=== PATIENT | male | born 1950 | race Caucasian/White ===

== ENCOUNTER → 2016-03-19 | Outpatient (CLI) | payer BC, OTHER ==
--- NOTE | 2016-03-19 13:22 | MRI ---
EXAM DESCRIPTION: MR LUMBAR SPINE WITHOUT IV CONTRAST CLINICAL HISTORY: RADICULOPATHY COMPARISON: None. TECHNIQUE: Multiplanar MRI of the lumbar spine was performed without contrast. GENERAL Lumbar vertebral bodies show normal height without compression deformity. Horizontal positioning of the upper sacrum is seen without evidence for spondylolysis or spondylolisthesis. There is curvature of the upper lumbar spine with convexity towards the right. Desiccation of the disc space and mild diffuse disc space narrowing is seen from T11 through L5. Small Schmorl's nodes extend into the endplates around the disc spaces at these levels without bone marrow edema. There is heterogeneous increased signal on T2 weighted sequences involving the right L5 pedicle. Conus medullaris terminates at T12 and is unremarkable. There is a 3.2 cm fluid signal cortical cyst of the right kidney with subcentimeter cortical cysts on both kidneys. L1-2 No significant spinal canal stenosis or foraminal encroachment is seen. L2-3 There is 2 mm broad-based disc bulge flattening the ventral surface of the thecal sac contributing to minimal spinal canal stenosis and mild left greater than right foraminal encroachment. L3-4 Minimal disc space narrowing is seen. There is mild 2-3 mm broad-based disc bulge eccentric towards the left flattening the ventral surface of the thecal sac contributing to minimal spinal canal stenosis with mild left greater than right foraminal encroachment. L4-5 No significant disc space narrowing. Mild bilateral facet hypertrophic and degenerative changes with a right greater than left ligamentum flavum thickening indents the posterolateral aspect of the thecal sac contributing to mild spinal canal stenosis. There is 2 or 3 mm broad-based disc bulge more prominent in the neural foramen bilaterally. Mild left and moderate to severe right foraminal encroachment is seen with the exiting right L4 nerve root likely contacting the disc bulging in the neural foramen. L5-S1 Moderate right and mild left facet hypertrophic and degenerative change is seen without spinal canal stenosis or significant foraminal encroachment. IMPRESSION: Mild disc degenerative changes from L1 through L5 with facet arthropathy most significant at L4 through S1. Multifactorial mild spinal canal stenosis with at least moderate right and mild left foraminal encroachment at L4-5. Probable stress reactive marrow edema versus stress fracture involving the right L5 pedicle. Mild dextrocurvature of the upper lumbar spine is seen. Electronically signed by: Berto Martinez MD 03/19/2016 13:20
== END ==
LOC: MRI 11:00
PROVIDERS: ATTEND Family Medicine
DX: M54.16 Radiculopathy, lumbar region (principal); M12.88 Other specific arthropathies, not elsewhere classified, other specified site; M48.06 Spinal stenosis, lumbar region

== ENCOUNTER 2016-10-11 08:42 | Emergency (ER) | payer OTHER ==
[2016-10-11] MEDS ORDERED: SODIUM CHLORIDE 0.9% 100ML 100 ML IVPB ONE (09:10)
[2016-10-11] MEDS ORDERED: diltiaZEM DRIP 125 MG/25 ML VIAL IVPB ONE ×3 (09:11→09:16)
--- NOTE | 2016-10-11 09:12 | ED.PDOC ---
History of Present Illness - General Chief Complaint: Chest Pain/AR Stated Complaint: PALPITATIONS Time Seen by Provider: 10/11/16 09:08 Source: patient Additional Information: PT WOKE UP THIS AM WITH SENSATION THAT HIS HEART WAS RACING, - History of Present Illness Timing/Duration: 1-3 hours Severity: moderate Location: substernal Activities at Onset: rest Prior Chest Pain/Cardiac Workup: no prior chest pain Improving Factors: nothing Worsening Factors: nothing Nitro Today/Relief: 0.4 mg x 2 Associated Symptoms: other - NO CP, SL SOB, NO DIAPHORESIS Allergies/Adverse Reactions: Allergies Iodine Allergy (Verified 10/11/16 09:19) Penicillins Allergy (Unverified 10/11/16 09:19) Home Medications: Ambulatory Orders Aspirin [(None)] 325 mg PO DAILY 10/11/16 Cholecalciferol [Vitamin D] 1,000 unit PO DAILY 10/11/16 Coenzyme Q10 (Ubidecarenone) [Co Q-10] 100 mg PO DAILY 10/11/16 Hydrochlorothiazide 25 mg PO DAILY 10/11/16 Levothyroxine Sodium [Synthroid] 0.025 mg PO DAILY 10/11/16 Lisinopril 20 mg PO BEDTIME 10/11/16 Lisinopril 40 mg PO DAILY 10/11/16 Multiple Vitamins W/ Minerals [Multivitamin Adult] 1 chw PO DAILY 10/11/16 Naproxen 250 mg PO Q8HR 10/11/16 [place]-3 Fatty Acids [Fish Oil] 1 cap PO DAILY 10/11/16 Simvastatin 10 mg PO DAILY 10/11/16 Review of Systems - Review of Systems Constitutional: Denies: chills, fever EENTM: States: no symptoms reported Respiratory: States: cough, short of breath, other - PT HAS HAD URI SX'S PAST 3 WEEKS WHICH HAS BEEN IMPROVING. Denies: orthopnea, wheezing Cardiology: Denies: chest pain, edema, palpitations Gastrointestinal/Abdominal: Denies: abdominal pain, nausea, vomiting Genitourinary: States: no symptoms reported Musculoskeletal: States: no symptoms reported Skin: States: no symptoms reported Past Medical History (General) - Patient Medical History Hx Congestive Heart Failure: No Hx Hypertension: Yes Hx Other - free text: HYPERLIPIDEMIA - Social History Hx Tobacco Use: No Hx Alcohol Use: Yes - DAILY RED WINE Family Medical History - Family History Mother Family History: No Known Living Status: Unknown Physical Exam - Physical Exam General Appearance: Comfortable, No apparent distress, Obese Eyes, Ears, Nose, Throat Exam: PERRL/EOMI, normal ENT inspection Neck: non-tender, full range of motion, supple, normal inspection Respiratory: lungs clear, no respiratory distress, other - SATS 99% ON RA, NL Cardiovascular/Chest: tachycardia, irregularly irregular Gastrointestinal/Abdominal: normal bowel sounds, non tender, soft, no organomegaly Extremity: normal range of motion, non-tender, no pedal edema Neurologic: alert, normal mood/affect, oriented x 3 Skin Exam: normal color, warm/dry Lymphatic: no adenopathy Progress - Progress Progress: 10/11/16 10:12 PULSE NOW IN LOW 100'S, FEELS BETTER. 10/11/16 11:20 D/W DR VELASQUEZ. PT NEEDS TO BE TRANSFERRED NURSING IS NOT CAPABLE OF MANAGING CARDIZEM DRIP AT THIS TIME. D/W DR ASHTON WILL SEE PT IN CONSULTATION. 1135: D/W DR GALVEZ WILL ACCEPT PT TO PCU IN TRANSFER AT [facility]. 10/11/16 11:44 CC NOTE: CRITICAL EVENT: AFIB WITH RVR CRITICAL FINDINGS: HR 150-170. AFIB DBP 112 SYSTEMS AT RISK: CARDIOVASCULAR INTERVENTION: INTRAVENOUS CARDIZEM BOLUS AND DRIP WITH CONTINUOUS OBSERVATION AND DRIP MANAGEMENT TIME: 50 MINUTES. - EKG/XRAY/CT EKG: Atrial, Fibrillation, Changed from - 07/10/13, AFIB HAS REPLACED NSR. Comments: VENT RATE 146, OCC PVC, LAD, NON SPECIFIC T WAVE CHANGES, NAIP XRAY: chest - CARDIOMEGALY WITH MILD OVERLOAD Departure - Departure Clinical Impression: Atrial fibrillation with rapid ventricular response Hypertension Qualifiers: Hypertension type: essential hypertension Qualified Code(s): I10 - Essential ( primary) hypertension Hyperlipemia Qualifiers: Hyperlipidemia type: unspecified Qualified Code(s): E78.5 - Hyperlipidemia, unspecified Time of Disposition: 11:48 - [facility] Disposition: Transfer to Hospital Condition: Good Departure Forms: ED Discharge - Pt. Copy, Patient Portal Self Enrollment Referrals: Berhane Watson MD [Primary Care Provider] - 1-2 Weeks Home Medications: Ambulatory Orders Aspirin [(None)] 325 mg PO DAILY 10/11/16 Cholecalciferol [Vitamin D] 1,000 unit PO DAILY 10/11/16 Coenzyme Q10 (Ubidecarenone) [Co Q-10] 100 mg PO DAILY 10/11/16 Hydrochlorothiazide 25 mg PO DAILY 10/11/16 Levothyroxine Sodium [Synthroid] 0.025 mg PO DAILY 10/11/16 Lisinopril 20 mg PO BEDTIME 10/11/16 Lisinopril 40 mg PO DAILY 10/11/16 Multiple Vitamins W/ Minerals [Multivitamin Adult] 1 chw PO DAILY 10/11/16 Naproxen 250 mg PO Q8HR 10/11/16 [place]-3 Fatty Acids [Fish Oil] 1 cap PO DAILY 10/11/16 Simvastatin 10 mg PO DAILY 10/11/16
[2016-10-11] MEDS ORDERED: diltiaZEM DRIP 125 MG in SODIUM CHLORIDE 0.9% 100ML 100 ML IVPB SCH (09:30)
--- NOTE | 2016-10-11 09:37 | RAD ---
EXAM DESCRIPTION: Chest,1 View CLINICAL HISTORY: 66 years Male, AFIB COMPARISON: July 10, 2013 TECHNIQUE: AP portable chest. FINDINGS: Cardiomegaly with vascular congestion. No effusion. No consolidation. IMPRESSION: Early CHF Electronically signed by: Tristen Benavides MD 10/11/2016 9:35 AM CDT
[2016-10-11 11:32] VITALS: BP 103/65; O2SAT 95
== END 2016-10-11 12:07 | disposition short-term general hospital (02) ==
LOC: ER 08:42
DX: I48.91 Unspecified atrial fibrillation (principal); I10 Essential (primary) hypertension; E78.5 Hyperlipidemia, unspecified; I51.7 Cardiomegaly; Z88.0 Allergy status to penicillin; Z88.8 Allergy status to other drugs, medicaments and biological substances; Z79.82 Long term (current) use of aspirin; Z79.899 Other long term (current) drug therapy
CPT/HCPCS: 36415; 71010; 80053; 82550; 82553; 83880; 84484; 85025; 93005; J7050

== ENCOUNTER → 2016-11-30 | Outpatient (CLI) | payer OTHER | END | disposition home or self-care (01) | LOC: GMAH 10:53 | PROVIDERS: ATTEND Family Medicine | DX: Z12.5 Encounter for screening for malignant neoplasm of prostate (principal); E78.2 Mixed hyperlipidemia | CPT/HCPCS: 84443; 84550; G0103 ==

== ENCOUNTER → 2017-12-06 | Outpatient (CLI) | payer MEDICARE, OTHER | LOC: GMAH 10:45 | PROVIDERS: ATTEND Family Medicine | DX: E03.9 Hypothyroidism, unspecified (principal); E78.2 Mixed hyperlipidemia; Z12.5 Encounter for screening for malignant neoplasm of prostate | CPT/HCPCS: 84443; 84550; G0103 ==

== ENCOUNTER → 2018-01-11 | Outpatient (CLI) | payer MEDICARE, OTHER | LOC: GMAH 17:12 | PROVIDERS: ATTEND Family Medicine | DX: E03.9 Hypothyroidism, unspecified (principal) ==

== ENCOUNTER → 2019-04-26 | Outpatient (CLI) | payer MEDICARE, OTHER | LOC: GMA MATASK 10:36 | PROVIDERS: ATTEND Family Medicine | DX: Z12.5 Encounter for screening for malignant neoplasm of prostate (principal); E03.9 Hypothyroidism, unspecified; I10 Essential (primary) hypertension | CPT/HCPCS: 84443; 84550; G0103 ==